=== PATIENT | male | born 1945 | race Caucasian/White ===

== ENCOUNTER 2021-09-08 17:46 | Inpatient (IN) | payer MEDICARE ==
[~2021-09-08] VITALS: Ht 182.9 cm; Wt 68.9 kg
[2021-09-08 20:00] VITALS: BP 139/76
[2021-09-08] MEDS: PROBENECID 500 MG TABLET PO SCH (21:00)
[2021-09-08] MEDS: ETHYL ALCOHOL 62% ANTISEPTIC NASAL SANITIZER 0.6 ML AMPUL NASAL SCH (22:01)
[2021-09-08] MEDS: SENNA 187 MG TABLET PO SCH (22:02)
[2021-09-08] MEDS: DOCUSATE SODIUM 100 MG CAPSULE PO SCH (22:02)
[2021-09-08] MEDS: FLECAINIDE ACETATE 50 MG TABLET PO SCH (22:02)
[2021-09-08] MEDS: ACETAMINOPHEN 500 MG TABLET PO SCH (22:02)
[2021-09-09 07:25] VITALS: BP 116/67
[2021-09-09] MEDS: ETHYL ALCOHOL 62% ANTISEPTIC NASAL SANITIZER 0.6 ML AMPUL NASAL SCH ×2 (08:09→20:33)
[2021-09-09] MEDS: ACETAMINOPHEN 500 MG TABLET PO SCH ×4 (08:09→23:15)
[2021-09-09] MEDS: DOCUSATE SODIUM 100 MG CAPSULE PO SCH ×2 (08:10→20:33)
[2021-09-09] MEDS: FUROSEMIDE 20 MG TABLET PO SCH (08:10)
[2021-09-09] MEDS: FLECAINIDE ACETATE 50 MG TABLET PO SCH ×2 (08:10→20:33)
[2021-09-09] MEDS: MULTIVITAMINS WITH MINERALS, THERAPEUTIC TABLET PO SCH (08:11)
[2021-09-09] MEDS: METOPROLOL SUCCINATE 25 MG ER TABLET PO SCH (08:12)
[2021-09-09 08:17] LABS: BASOPHILS % (AUTO) 0.7 % (0.0-2.0); EOSINOPHILS % (AUTO) 4.4 % (1.0-6.0); HEMATOCRIT 31.9 % (41-53); HEMOGLOBIN 11.2 g/dL (13.5-17.5); LYMPHOCYTES # (AUTO) 0.8 K/uL (1.0-4.8); LYMPHOCYTES % (AUTO) 15.3 % (22.0-44.0); MEAN CORPUSCULAR HGB CONC 35.1 G/dL (31.0-37.0); MEAN CORPUSCULAR VOLUME 97 fL (80-100); MONOCYTES # (AUTO) 0.6 K/uL (0.1-1.0); MONOCYTES % (AUTO) 11.6 % (2.0-9.0); NEUTROPHILS # (AUTO) 3.5 K/uL (1.8-7.7); PLATELET COUNT (AUTO) 185 K/uL (150-450); RED CELL DISTRIBUTION WIDTH 12.6 % (11.5-14.5)
[2021-09-09 08:19] LABS: ALANINE AMINOTRANSFERASE 28 U/L (12-78); ALKALINE PHOSPHATASE 69 U/L (46-116); ANION GAP 8 mmol/L (8-16); ASPARTATE AMINOTRANSFERASE 42 U/L (15-37); BILIRUBIN,TOTAL 0.1 mg/dL (0.1-1.0); CALCIUM, TOTAL 8.9 mg/dL (8.8-10.5); CARBON DIOXIDE 30 mmol/L (22-29); CHLORIDE 102 mmol/L (98-107); CREATININE 1.07 mg/dL (0.60-1.30); GLOMERULAR FILTR. RATE CALC > 60 mL/min (>60); GLUCOSE,RANDOM 90 mg/dL (70-110); POTASSIUM 4.2 mmol/L (3.5-5.1); SODIUM SERUM 140 mmol/L (136-145); TOTAL PROTEIN, SERUM 5.8 g/dL (6.4-8.2); UREA NITROGEN, BLOOD 18 mg/dL (7-18)
[2021-09-09] MEDS: PROBENECID 500 MG TABLET PO SCH ×2 (09:00→20:33)
[2021-09-09] MEDS: RIVAROXABAN 20 MG TABLET PO SCH (16:55)
[2021-09-09] MEDS: SENNA 187 MG TABLET PO SCH (20:33)
[2021-09-09 21:09] VITALS: BP 127/73
[2021-09-10 07:25] VITALS: BP 127/72
[2021-09-10] MEDS: ACETAMINOPHEN 500 MG TABLET PO SCH ×2 (07:51→16:30)
[2021-09-10] MEDS: ETHYL ALCOHOL 62% ANTISEPTIC NASAL SANITIZER 0.6 ML AMPUL NASAL SCH ×2 (07:52→20:37)
[2021-09-10] MEDS: PROBENECID 500 MG TABLET PO SCH ×2 (07:52→20:38)
[2021-09-10] MEDS: DOCUSATE SODIUM 250 MG CAPSULE PO SCH ×2 (07:52→20:38)
[2021-09-10] MEDS: FUROSEMIDE 20 MG TABLET PO SCH (07:53)
[2021-09-10] MEDS: FLECAINIDE ACETATE 50 MG TABLET PO SCH ×2 (07:53→20:38)
[2021-09-10] MEDS: METOPROLOL SUCCINATE 25 MG ER TABLET PO SCH (07:53)
[2021-09-10] MEDS: MULTIVITAMINS WITH MINERALS, THERAPEUTIC TABLET PO SCH (07:53)
[2021-09-10 08:00] VITALS: BP 127/72
[2021-09-10] MEDS: RIVAROXABAN 20 MG TABLET PO SCH (18:30)
[2021-09-10 20:15] VITALS: BP 114/68
[2021-09-10] MEDS: SENNA 187 MG TABLET PO SCH (20:38)
[2021-09-10 21:00] VITALS: BP 114/68
[2021-09-11] MEDS: ACETAMINOPHEN 500 MG TABLET PO SCH ×2 (00:08→08:16)
[2021-09-11 07:25] VITALS: BP 120/69
[2021-09-11] MEDS: ETHYL ALCOHOL 62% ANTISEPTIC NASAL SANITIZER 0.6 ML AMPUL NASAL SCH ×2 (08:16→20:53)
[2021-09-11] MEDS: FUROSEMIDE 20 MG TABLET PO SCH (08:17)
[2021-09-11] MEDS: DOCUSATE SODIUM 250 MG CAPSULE PO SCH ×2 (08:17→20:52)
[2021-09-11] MEDS: PROBENECID 500 MG TABLET PO SCH ×2 (08:17→20:49)
[2021-09-11] MEDS: FLECAINIDE ACETATE 50 MG TABLET PO SCH ×2 (08:18→20:52)
[2021-09-11] MEDS: METOPROLOL SUCCINATE 25 MG ER TABLET PO SCH (08:18)
[2021-09-11] MEDS: MULTIVITAMINS WITH MINERALS, THERAPEUTIC TABLET PO SCH (08:18)
[2021-09-11] MEDS: RIVAROXABAN 20 MG TABLET PO SCH (17:54)
[2021-09-11] MEDS ORDERED: WATER FOR IRRIGATION,STERILE 1000 ML SOLUTION BOTTLE ONE (20:04)
[2021-09-11] MEDS: SENNA 187 MG TABLET PO SCH (20:52)
[2021-09-11 20:53] VITALS: BP 136/75
[2021-09-11] MEDS: ACETAMINOPHEN 500 MG TABLET PO PRN (20:53)
[2021-09-12] MEDS: DOCUSATE SODIUM 250 MG CAPSULE PO SCH ×2 (08:16→21:00)
[2021-09-12] MEDS: ETHYL ALCOHOL 62% ANTISEPTIC NASAL SANITIZER 0.6 ML AMPUL NASAL SCH ×2 (08:16→21:04)
[2021-09-12] MEDS: MULTIVITAMINS WITH MINERALS, THERAPEUTIC TABLET PO SCH (08:16)
[2021-09-12] MEDS: PROBENECID 500 MG TABLET PO SCH ×2 (08:17→21:04)
[2021-09-12] MEDS: METOPROLOL SUCCINATE 25 MG ER TABLET PO SCH (08:18)
[2021-09-12] MEDS: FLECAINIDE ACETATE 50 MG TABLET PO SCH ×2 (08:18→21:04)
[2021-09-12 08:20] VITALS: BP 93/53
[2021-09-12] MEDS: ACETAMINOPHEN 500 MG TABLET PO PRN (08:23)
[2021-09-12] MEDS: FUROSEMIDE 20 MG TABLET PO SCH (09:00)
[2021-09-12] MEDS: ValACYclovir HCL 500 MG TABLET PO PRN (11:23)
[2021-09-12 13:28] LABS: BASOPHILS % (AUTO) 0.7 % (0.0-2.0); HEMATOCRIT 32.7 % (41-53); HEMOGLOBIN 11.4 g/dL (13.5-17.5); LYMPHOCYTES # (AUTO) 0.9 K/uL (1.0-4.8); LYMPHOCYTES % (AUTO) 14.5 % (22.0-44.0); MEAN CORPUSCULAR HEMOGLOBIN 33.6 pg (26.0-34.0); MEAN CORPUSCULAR HGB CONC 34.8 G/dL (31.0-37.0); MEAN CORPUSCULAR VOLUME 97 fL (80-100); MONOCYTES # (AUTO) 0.7 K/uL (0.1-1.0); MONOCYTES % (AUTO) 10.4 % (2.0-9.0); NEUTROPHILS # (AUTO) 4.6 K/uL (1.8-7.7); NEUTROPHILS % (AUTO) 73.4 % (40.0-70.0); PLATELET COUNT (AUTO) 301 K/uL (150-450); RED BLOOD CELL COUNT(AUTO) 3.38 MIL/uL (4.50-5.90); RED CELL DISTRIBUTION WIDTH 12.6 % (11.5-14.5)
[2021-09-12] MEDS: RIVAROXABAN 20 MG TABLET PO SCH (16:18)
[2021-09-12 20:00] VITALS: BP 142/70
[2021-09-12] MEDS: SENNA 187 MG TABLET PO SCH (21:00)
[2021-09-12 21:02] VITALS: BP 142/70
[2021-09-13 08:00] VITALS: BP 89/66
[2021-09-13] MEDS: FUROSEMIDE 20 MG TABLET PO SCH (09:00)
[2021-09-13] MEDS: ETHYL ALCOHOL 62% ANTISEPTIC NASAL SANITIZER 0.6 ML AMPUL NASAL SCH ×2 (09:13→20:39)
[2021-09-13] MEDS: MULTIVITAMINS WITH MINERALS, THERAPEUTIC TABLET PO SCH (09:14)
[2021-09-13] MEDS: DOCUSATE SODIUM 250 MG CAPSULE PO SCH ×2 (09:14→20:40)
[2021-09-13] MEDS: FLECAINIDE ACETATE 50 MG TABLET PO SCH ×2 (09:14→20:40)
[2021-09-13] MEDS: METOPROLOL SUCCINATE 25 MG ER TABLET PO SCH (09:14)
[2021-09-13] MEDS: PROBENECID 500 MG TABLET PO SCH ×2 (09:16→20:40)
[2021-09-13] MEDS: ValACYclovir HCL 500 MG TABLET PO PRN ×2 (09:19→20:41)
[2021-09-13 10:52] VITALS: BP 107/60
[2021-09-13] MEDS: RIVAROXABAN 20 MG TABLET PO SCH (17:21)
[2021-09-13] MEDS: ACETAMINOPHEN 500 MG TABLET PO PRN (18:39)
[2021-09-13 20:03] VITALS: BP 105/64
[2021-09-13] MEDS: SENNA 187 MG TABLET PO SCH (20:41)
[2021-09-13 21:02] VITALS: BP 105/64
[2021-09-14] MEDS: FUROSEMIDE 20 MG TABLET PO SCH (08:02)
[2021-09-14] MEDS: ETHYL ALCOHOL 62% ANTISEPTIC NASAL SANITIZER 0.6 ML AMPUL NASAL SCH ×2 (08:02→20:34)
[2021-09-14] MEDS: DOCUSATE SODIUM 250 MG CAPSULE PO SCH ×2 (08:03→20:34)
[2021-09-14] MEDS: PROBENECID 500 MG TABLET PO SCH ×2 (08:03→20:29)
[2021-09-14 08:04] VITALS: BP 135/70
[2021-09-14] MEDS: MULTIVITAMINS WITH MINERALS, THERAPEUTIC TABLET PO SCH (08:04)
[2021-09-14] MEDS: ACETAMINOPHEN 500 MG TABLET PO PRN (08:04)
[2021-09-14] MEDS: FLECAINIDE ACETATE 50 MG TABLET PO SCH ×2 (08:05→20:29)
[2021-09-14] MEDS: ValACYclovir HCL 500 MG TABLET PO PRN ×2 (08:06→20:30)
[2021-09-14] MEDS: METOPROLOL SUCCINATE 25 MG ER TABLET PO SCH (08:06)
[2021-09-14 15:19] LABS: COVID AG,FIA SOURCE NASAL SWAB
[2021-09-14] MEDS: RIVAROXABAN 20 MG TABLET PO SCH (17:03)
[2021-09-14] MEDS: SENNA 187 MG TABLET PO SCH (20:35)
[2021-09-14 21:00] VITALS: BP 117/66
[2021-09-15] MEDS: ETHYL ALCOHOL 62% ANTISEPTIC NASAL SANITIZER 0.6 ML AMPUL NASAL SCH ×2 (07:39→20:43)
[2021-09-15] MEDS: MULTIVITAMINS WITH MINERALS, THERAPEUTIC TABLET PO SCH (07:39)
[2021-09-15] MEDS: PROBENECID 500 MG TABLET PO SCH ×2 (07:41→20:37)
[2021-09-15] MEDS: DOCUSATE SODIUM 250 MG CAPSULE PO SCH ×2 (07:42→20:37)
[2021-09-15] MEDS: FUROSEMIDE 20 MG TABLET PO SCH (07:42)
[2021-09-15] MEDS: FLECAINIDE ACETATE 50 MG TABLET PO SCH ×2 (07:43→20:37)
[2021-09-15] MEDS: METOPROLOL SUCCINATE 25 MG ER TABLET PO SCH (07:44)
[2021-09-15 08:20] VITALS: BP 108/67
[2021-09-15] MEDS: ACETAMINOPHEN 500 MG TABLET PO PRN ×2 (08:22→20:38)
[2021-09-15 09:48] LABS: BASOPHILS % (AUTO) 0.8 % (0.0-2.0); EOSINOPHILS % (AUTO) 0.4 % (1.0-6.0); HEMATOCRIT 32.1 % (41-53); LYMPHOCYTES # (AUTO) 0.7 K/uL (1.0-4.8); LYMPHOCYTES % (AUTO) 16.6 % (22.0-44.0); MEAN CORPUSCULAR HEMOGLOBIN 33.4 pg (26.0-34.0); MEAN CORPUSCULAR HGB CONC 34.3 G/dL (31.0-37.0); MEAN CORPUSCULAR VOLUME 97 fL (80-100); MONOCYTES # (AUTO) 0.7 K/uL (0.1-1.0); MONOCYTES % (AUTO) 15.3 % (2.0-9.0); NEUTROPHILS # (AUTO) 2.9 K/uL (1.8-7.7); NEUTROPHILS % (AUTO) 66.9 % (40.0-70.0); PLATELET COUNT (AUTO) 335 K/uL (150-450); RED CELL DISTRIBUTION WIDTH 12.8 % (11.5-14.5)
[2021-09-15 09:56] LABS: CALCIUM, TOTAL 8.9 mg/dL (8.8-10.5); CREATININE 1.4 mg/dL (0.60-1.30); POTASSIUM 3.7 mmol/L (3.5-5.1)
[2021-09-15] MEDS: RIVAROXABAN 20 MG TABLET PO SCH (20:06)
[2021-09-15 20:36] VITALS: BP 124/78
[2021-09-15] MEDS: SENNA 187 MG TABLET PO SCH (20:38)
[2021-09-16] MEDS ORDERED: ACET-3385 PO (03:54)
[2021-09-16] MEDS ORDERED: SENN-277 PO (03:54)
[2021-09-16] MEDS ORDERED: DOCU-350 PO (03:54)
[2021-09-16] MEDS ORDERED: METO25XL PO (03:54)
[2021-09-16] MEDS ORDERED: RIVA20TA PO (03:54)
[2021-09-16] MEDS ORDERED: FLEC50 PO (03:54)
[2021-09-16] MEDS ORDERED: VALA500T42 PO (03:54)
[2021-09-16] MEDS ORDERED: MULT-1239 PO (03:54)
[2021-09-16] MEDS ORDERED: PROB500 PO (03:54)
[2021-09-16] MEDS: ETHYL ALCOHOL 62% ANTISEPTIC NASAL SANITIZER 0.6 ML AMPUL NASAL SCH ×2 (07:32→20:11)
[2021-09-16] MEDS: DOCUSATE SODIUM 250 MG CAPSULE PO SCH ×2 (07:33→20:11)
[2021-09-16] MEDS: FLECAINIDE ACETATE 50 MG TABLET PO SCH ×2 (07:33→20:11)
[2021-09-16 07:34] LABS: ANION GAP 8 mmol/L (8-16); CALCIUM, TOTAL 8.6 mg/dL (8.8-10.5); CARBON DIOXIDE 29 mmol/L (22-29); CHLORIDE 101 mmol/L (98-107); CREATININE 1.03 mg/dL (0.60-1.30); GLOMERULAR FILTR. RATE CALC > 60 mL/min (>60); GLUCOSE,RANDOM 84 mg/dL (70-110); SODIUM SERUM 138 mmol/L (136-145); UREA NITROGEN, BLOOD 23 mg/dL (7-18)
[2021-09-16] MEDS: MULTIVITAMINS WITH MINERALS, THERAPEUTIC TABLET PO SCH (07:34)
[2021-09-16] MEDS: METOPROLOL SUCCINATE 25 MG ER TABLET PO SCH (07:34)
[2021-09-16] MEDS: PROBENECID 500 MG TABLET PO SCH ×2 (07:36→20:11)
[2021-09-16 08:05] VITALS: BP 119/69
[2021-09-16 10:30] VITALS: BP 94/58
[2021-09-16] MEDS: RIVAROXABAN 20 MG TABLET PO SCH (16:07)
[2021-09-16 17:17] LABS: APPEARANCE,URINE CLEAR (CLEAR); BILIRUBIN,URINE NEGATIVE (NEGATIVE); GLUCOSE, URINE (UA) NEGATIVE (NEGATIVE); KETONES,URINE NEGATIVE (NEGATIVE); LEUKOCYTE ESTERASE ,URINE NEGATIVE (NEGATIVE); NITRATE,URINE NEGATIVE (NEGATIVE); OCCULT BLOOD,URINE NEGATIVE (NEGATIVE); PH,URINE 6.5 (5.0-8.0); PROTEIN,URINE NEGATIVE (NEGATIVE); SPECIFIC GRAVITIY, URINE 1.009 (1.003-1.030); UROBILINOGEN,URINE <=1.0 mg/dL (<=1.0)
[2021-09-16 17:39] LABS: BACTERIA,URINE None Seen /HPF (None Seen); RBC,URINE None Seen /HPF (0-2); WBC,URINE None Seen /HPF (0-5)
[2021-09-16] MEDS: SENNA 187 MG TABLET PO SCH (20:11)
[2021-09-16 22:05] VITALS: BP 132/67
[2021-09-17 07:25] VITALS: BP 114/65
[2021-09-17] MEDS: ETHYL ALCOHOL 62% ANTISEPTIC NASAL SANITIZER 0.6 ML AMPUL NASAL SCH ×2 (08:41→20:03)
[2021-09-17] MEDS: PROBENECID 500 MG TABLET PO SCH ×2 (08:42→20:03)
[2021-09-17] MEDS: MULTIVITAMINS WITH MINERALS, THERAPEUTIC TABLET PO SCH (08:43)
[2021-09-17] MEDS: FLECAINIDE ACETATE 50 MG TABLET PO SCH ×2 (08:43→20:03)
[2021-09-17] MEDS: DOCUSATE SODIUM 250 MG CAPSULE PO SCH ×2 (08:45→20:03)
[2021-09-17] MEDS: ACETAMINOPHEN 500 MG TABLET PO PRN ×2 (09:45→20:04)
[2021-09-17] MEDS ORDERED: SODIUM CHLORIDE 0.9% 1,000 ML ONE (13:09)
[2021-09-17] MEDS ORDERED: SODIUM CHLORIDE 0.9% 1,000 ML IV ONE (15:15)
[2021-09-17 15:24] LABS: CALCIUM, TOTAL 8.3 mg/dL (8.8-10.5); CREATININE 1.34 mg/dL (0.60-1.30); POTASSIUM 4.3 mmol/L (3.5-5.1)
[2021-09-17] MEDS: RIVAROXABAN 20 MG TABLET PO SCH (17:45)
[2021-09-17] MEDS: SENNA 187 MG TABLET PO SCH (20:03)
[2021-09-17 20:04] VITALS: BP 111/60
[2021-09-18] VITALS (7 sets, daily range): BP systolic 73–127; BP diastolic 44–70
[2021-09-18] MEDS: ETHYL ALCOHOL 62% ANTISEPTIC NASAL SANITIZER 0.6 ML AMPUL NASAL SCH ×2 (07:36→20:51)
[2021-09-18] MEDS: PROBENECID 500 MG TABLET PO SCH ×2 (07:37→20:52)
[2021-09-18] MEDS: DOCUSATE SODIUM 250 MG CAPSULE PO SCH ×2 (07:37→20:52)
[2021-09-18] MEDS: MULTIVITAMINS WITH MINERALS, THERAPEUTIC TABLET PO SCH (07:37)
[2021-09-18] MEDS: FLECAINIDE ACETATE 50 MG TABLET PO SCH ×2 (07:37→20:52)
[2021-09-18] MEDS: ACETAMINOPHEN 500 MG TABLET PO PRN ×3 (07:45→21:18)
[2021-09-18] MEDS ORDERED: SODIUM CHLORIDE 0.9% 1,000 ML IV ONE (10:45)
[2021-09-18 11:18] LABS: ANION GAP 8 mmol/L (8-16); CALCIUM, TOTAL 8.2 mg/dL (8.8-10.5); CARBON DIOXIDE 27 mmol/L (22-29); CHLORIDE 97 mmol/L (98-107); CREATININE 1.04 mg/dL (0.60-1.30); GLUCOSE,RANDOM 85 mg/dL (70-110); POTASSIUM 4.3 mmol/L (3.5-5.1); SODIUM SERUM 132 mmol/L (136-145); UREA NITROGEN, BLOOD 24 mg/dL (7-18)
[2021-09-18 11:19] LABS: GLOMERULAR FILTR. RATE CALC > 60 mL/min (>60)
[2021-09-18] MEDS: SODIUM CHLORIDE 0.9% 1,000 ML IV ONE ×2 (16:55→23:12)
[2021-09-18] MEDS: RIVAROXABAN 20 MG TABLET PO SCH (16:59)
[2021-09-18] MEDS: SENNA 187 MG TABLET PO SCH (20:52)
[2021-09-19 07:45] VITALS: BP 106/57
[2021-09-19 07:50] VITALS: BP 77/54
[2021-09-19] MEDS: PROBENECID 500 MG TABLET PO SCH ×2 (08:10→20:10)
[2021-09-19] MEDS: FLECAINIDE ACETATE 50 MG TABLET PO SCH ×2 (08:10→20:09)
[2021-09-19] MEDS: ETHYL ALCOHOL 62% ANTISEPTIC NASAL SANITIZER 0.6 ML AMPUL NASAL SCH ×2 (08:18→20:09)
[2021-09-19] MEDS: DOCUSATE SODIUM 250 MG CAPSULE PO SCH ×2 (08:19→20:09)
[2021-09-19] MEDS: MULTIVITAMINS WITH MINERALS, THERAPEUTIC TABLET PO SCH (08:19)
[2021-09-19] MEDS: ACETAMINOPHEN 500 MG TABLET PO PRN (08:22)
[2021-09-19 09:34] LABS: ANION GAP 10 mmol/L (8-16); CALCIUM, TOTAL 7.9 mg/dL (8.8-10.5); CARBON DIOXIDE 28 mmol/L (22-29); CHLORIDE 98 mmol/L (98-107); CREATININE 0.98 mg/dL (0.60-1.30); GLUCOSE,RANDOM 151 mg/dL (70-110); POTASSIUM 3.6 mmol/L (3.5-5.1); SODIUM SERUM 136 mmol/L (136-145); UREA NITROGEN, BLOOD 15 mg/dL (7-18)
[2021-09-19 09:35] LABS: GLOMERULAR FILTR. RATE CALC > 60 mL/min (>60)
[2021-09-19] MEDS ORDERED: MAGNESIUM SULFATE 2 GM/WATER 50 ML IV PRN (10:30)
[2021-09-19] MEDS ORDERED: MAGNESIUM SULFATE 4 GM/WATER 100 ML IV PRN (10:30)
[2021-09-19] MEDS: SODIUM CHLORIDE 1 GM TABLET PO SCH ×2 (11:19→20:09)
[2021-09-19] MEDS: MAGNESIUM OXIDE 400 MG TABLET PO PRN ×2 (11:19→16:29)
[2021-09-19] MEDS: RIVAROXABAN 20 MG TABLET PO SCH (16:30)
[2021-09-19] MEDS: SENNA 187 MG TABLET PO SCH (20:09)
[2021-09-19 21:01] VITALS: BP 140/76
[2021-09-20] MEDS: MAGNESIUM OXIDE 400 MG TABLET PO PRN (00:34)
[2021-09-20 08:00] VITALS: BP 113/65
[2021-09-20] MEDS: 0.9% SODIUM CHLORIDE 10 ML SYRINGE IVP SCH ×2 (09:00→20:05)
[2021-09-20] MEDS: ACETAMINOPHEN 500 MG TABLET PO PRN ×2 (09:20→20:04)
[2021-09-20] MEDS: DOCUSATE SODIUM 250 MG CAPSULE PO SCH ×2 (09:21→20:03)
[2021-09-20] MEDS: ETHYL ALCOHOL 62% ANTISEPTIC NASAL SANITIZER 0.6 ML AMPUL NASAL SCH ×2 (09:21→20:04)
[2021-09-20] MEDS: FLECAINIDE ACETATE 50 MG TABLET PO SCH ×2 (09:21→20:03)
[2021-09-20] MEDS: SODIUM CHLORIDE 1 GM TABLET PO SCH ×2 (09:21→20:04)
[2021-09-20] MEDS: PROBENECID 500 MG TABLET PO SCH ×2 (09:22→20:03)
[2021-09-20] MEDS: MULTIVITAMINS WITH MINERALS, THERAPEUTIC TABLET PO SCH (09:22)
[2021-09-20] MEDS ORDERED: SODIUM CHLORIDE 0.9% 1,000 ML IV ONE (13:30)
[2021-09-20] MEDS: RIVAROXABAN 20 MG TABLET PO SCH (17:29)
[2021-09-20] MEDS: SENNA 187 MG TABLET PO SCH (20:03)
[2021-09-20 20:04] VITALS: BP 152/87
[2021-09-20 21:04] VITALS: BP 148/78
[2021-09-21] MEDS: ETHYL ALCOHOL 62% ANTISEPTIC NASAL SANITIZER 0.6 ML AMPUL NASAL SCH ×2 (08:42→20:37)
[2021-09-21] MEDS: FLECAINIDE ACETATE 50 MG TABLET PO SCH ×2 (08:43→20:36)
[2021-09-21] MEDS: SODIUM CHLORIDE 1 GM TABLET PO SCH ×2 (08:43→20:36)
[2021-09-21] MEDS: MULTIVITAMINS WITH MINERALS, THERAPEUTIC TABLET PO SCH (08:43)
[2021-09-21] MEDS: PROBENECID 500 MG TABLET PO SCH ×2 (08:43→20:36)
[2021-09-21] MEDS: DOCUSATE SODIUM 250 MG CAPSULE PO SCH ×2 (08:43→20:36)
[2021-09-21 08:47] VITALS: BP 120/74
[2021-09-21] MEDS: ACETAMINOPHEN 500 MG TABLET PO PRN ×2 (08:47→20:37)
[2021-09-21] MEDS: 0.9% SODIUM CHLORIDE 10 ML SYRINGE IVP SCH ×2 (08:48→20:48)
[2021-09-21 13:00] VITALS: BP 100/62
[2021-09-21] MEDS: RIVAROXABAN 20 MG TABLET PO SCH (16:13)
[2021-09-21 20:37] VITALS: BP 113/63
[2021-09-21] MEDS: SENNA 187 MG TABLET PO SCH (20:37)
[2021-09-21 20:40] VITALS: BP 113/63
[2021-09-22] MEDS: SODIUM CHLORIDE 1 GM TABLET PO SCH (07:59)
[2021-09-22] MEDS: MULTIVITAMINS WITH MINERALS, THERAPEUTIC TABLET PO SCH (07:59)
[2021-09-22] MEDS: DOCUSATE SODIUM 250 MG CAPSULE PO SCH (07:59)
[2021-09-22] MEDS: ETHYL ALCOHOL 62% ANTISEPTIC NASAL SANITIZER 0.6 ML AMPUL NASAL SCH (07:59)
[2021-09-22] MEDS: 0.9% SODIUM CHLORIDE 10 ML SYRINGE IVP SCH (07:59)
[2021-09-22] MEDS: FLECAINIDE ACETATE 50 MG TABLET PO SCH (07:59)
[2021-09-22 08:00] VITALS: BP 138/79
[2021-09-22] MEDS: PROBENECID 500 MG TABLET PO SCH (08:00)
[2021-09-22 08:05] VITALS: BP 91/54
[2021-09-22] MEDS: ACETAMINOPHEN 500 MG TABLET PO PRN (09:14)
== END 2021-09-22 12:30 | disposition home health service (06) | DRG 536 ==
LOC: 2WR 19:35
PROVIDERS: ADMIT Physical Medicine & Rehabilitation; ATTEND Physical Medicine & Rehabilitation
DX: S72.002A Fracture of unspecified part of neck of left femur, initial encounter for closed fracture (principal); E87.1 Hypo-osmolality and hyponatremia; I48.92 Unspecified atrial flutter; W11.XXXA Fall on and from ladder, initial encounter; D64.9 Anemia, unspecified; Z66 Do not resuscitate; E83.42 Hypomagnesemia; E86.0 Dehydration; I48.91 Unspecified atrial fibrillation; I95.1 Orthostatic hypotension; Z20.822 Contact with and (suspected) exposure to COVID-19; M10.9 Gout, unspecified; Y93.89 Activity, other specified; Y92.89 Other specified places as the place of occurrence of the external cause; Y99.8 Other external cause status; Z79.01 Long term (current) use of anticoagulants; Z95.0 Presence of cardiac pacemaker; Z88.0 Allergy status to penicillin; Z88.8 Allergy status to other drugs, medicaments and biological substances; Z82.49 Family history of ischemic heart disease and other diseases of the circulatory system
CPT/HCPCS: 73503; 80048; 80053; 81001; 82040; 83735; 85025; 87081; 93005; 93306; 97110; 97116; 97150; 97163; 97166; 97530; 97535; 99366; J7030